=== PATIENT | female | born 1935 | race Caucasian/White ===

== ENCOUNTER 2018-10-29 17:19 | Emergency (ER) | payer OTHER ==
[~2018-10-29] VITALS: Ht 149.9 cm; Wt 72.6 kg
[2018-10-29] MEDS ORDERED: TAMS0.4C (17:51)
[2018-10-29] MEDS ORDERED: OMEGA 3 1,0001 EACH (17:51)
[2018-10-29] MEDS ORDERED: NEURONTIN300 MG (17:51)
[2018-10-29] MEDS ORDERED: FISH OIL 1,0001 EAC4 (17:51)
[2018-10-29] MEDS ORDERED: FOLIC ACID0.4 MG (17:52)
[2018-10-29] MEDS ORDERED: ATORVASTATIN CA10 MG (17:52)
[2018-10-29] MEDS ORDERED: CENTRUM MULTIG80 MCG (17:52)
[2018-10-29] MEDS ORDERED: ATENOLOL25 MG (17:52)
[2018-10-30] MEDS ORDERED: INTESTINEX680 M1 PO (04:47)
[2018-10-30] MEDS ORDERED: PEPCID40 MG PO (04:47)
[2018-10-30] MEDS ORDERED: ZOFRAN4 MG PO (04:47)
== END 2018-10-30 05:14 | disposition home or self-care (01) ==
LOC: ER 17:19
DX: K52.89 Other specified noninfective gastroenteritis and colitis (principal); N39.0 Urinary tract infection, site not specified; B96.29 Other Escherichia coli [E. coli] as the cause of diseases classified elsewhere